=== PATIENT | female | born 1935 ===

== ENCOUNTER 2017-07-21 09:48 | Inpatient (IN) | payer SELFPAY ==
[~2017-07-21 09:48] MED LIST: Iopamidol 370 76% 100 ML VIAL ONE; Iopamidol 370 76% 50 ML VIAL FS ONE
[2017-07-21] MEDS ORDERED: Fentanyl 100 MCG/2 ML VIAL ONE ×2 (09:59→11:11)
[2017-07-21 10:07] LABS: #Eosinphils 0.3 thou/uL (0.0-0.7); #Lymphocytes 4.1 thou/uL (1.20-3.40); %Basophils 0.3 % (0.0-1.0); %Eosinophils 2.9 % (0.0-10.0); %Lymphocytes 39.6 % (21.0-51.0); %Monocytes 9.5 % (0.0-10.0); %Neutrophils 47.6 % (42.0-75.0); Hemoglobin 12.6 g/dL (12.0-16.0); Mean Corpuscular Hemoglobin 32.5 pg (27.0-31.0); Mean Corpuscular Volume 95.7 fl (81.0-99.0); Mean Platelet Volume 8.3 fL (7.4-10.4); Platelet Count 194 thou/uL (130-400); RBC Distribution Width 12.1 % (11.5-14.5); Red Blood Cell (RBC) Count 3.88 mill/uL (4.20-5.40); White Blood Cell (WBC) Count 10.4 thou/uL (4.8-10.8)
--- NOTE | 2017-07-21 10:23 | RAD ---
CHEST ONE VIEW: HISTORY: Chest pain. COMPARISON: None. FINDINGS: Mild interstitial edema. No focal air space consolidation. There is mild perihilar fullness bilater ally. Defibrillator pad projects over the right hemithorax. IMPRESSION: Mildly increased interstitial markings, suggesting edema. POS: [facility]
[2017-07-21] MEDS ORDERED: Midazolam HCl 2 mg/2 ml Vial ONE ×3 (10:31→11:47)
[2017-07-21 10:35] LABS: ALT (SGPT) 12 U/L (8-55); AST (SGOT) 16 U/L (5-34); Albumin 3.3 g/dL (3.4-4.8); Alkaline Phosphatase 62 U/L (40-150); Anion Gap 13 mmol/L (10-20); BUN (Urea Nitrogen) 10 mg/dL (9.8-20.1); Bilirubin, Total 0.4 mg/dL (0.2-1.2); CK (CPK) 79 U/L (29-168); Calc. Creatinine Clearance 0 mL/min (70-130); Calcium 8.2 mg/dL (7.8-10.44); Carbon Dioxide 20 mmol/L (23-31); Chloride 111 mmol/L (98-107); Estimated GFR-MDRD 73; Globulin 2.3 g/dL (2.4-3.5); Glucose 120 mg/dL (83-110); Lipase 133 U/L (8-78); Potassium 3.5 mmol/L (3.5-5.1); Protein, Total 5.6 g/dL (6.0-8.3); Sodium 140 mmol/L (136-145)
[2017-07-21 10:39] LABS: CKMB 1.6 ng/mL (0-6.6); Troponin I Less than 0.010 ng/mL (< 0.028)
[2017-07-21] MEDS ORDERED: Heparin 10,000 UNITS/1 ML VIAL ONE (10:47)
[2017-07-21] MEDS ORDERED: Nitroglycerin 100MG/250ML BOT 250 ML ONE (10:52)
[2017-07-21] MEDS ORDERED: Verapamil 5 MG/2 ML VIAL ONE (11:01)
[2017-07-21] MEDS ORDERED: DOPamine 400 MG/D5W 250 ML 250 ML ONE (11:01)
[2017-07-21] MEDS ORDERED: Adenosine 6 MG/2 ML VIAL ONE (11:01)
[2017-07-21] MEDS ORDERED: Norepinephrine 4 MG/4 ML VIAL ONE ×3 (11:16→11:47)
[2017-07-21] MEDS ORDERED: Aggrastat 12.5 MG/250 ML 250 ML ONE (11:30)
[2017-07-21] MEDS ORDERED: Ondansetron HCl/PF 4 MG/2 ML Vial ONE (11:33)
[2017-07-21] MEDS ORDERED: TICAGRELOR 90 MG TABLET ONE (12:06)
[2017-07-21] MEDS ORDERED: Milk Of Magnesia 30 ML UDCUP PO PRN (12:12)
[2017-07-21] MEDS ORDERED: Aggrastat 12.5 MG/250 ML 250 ML IVPB SCH (12:15)
[2017-07-21] MEDS ORDERED: Sodium Chloride 0.9% 1,000 ML IV SCH (12:15)
[2017-07-21] MEDS ORDERED: TICAGRELOR 90 MG TABLET PO SCH ×3 (12:18→21:00)
[2017-07-21] MEDS ORDERED: Aggrastat 12.5 MG/250 ML 12.5 MG in Premix Bag 1 BAG IVPB SCH (12:18)
[2017-07-21] MEDS ORDERED: Morphine 4 MG/ML Carpuject SLOW IVP PRN (12:18)
[2017-07-21] MEDS ORDERED: DOPamine 400 MG/D5W 250 ML 250 ML IVPB PRN (12:21)
--- NOTE | 2017-07-21 12:44 | HP ---
DATE OF ADMISSION: 07/21/2017 INDICATION FOR PROCEDURE: An 81-year-old female with acute anterior myocardial infarction. HISTORY OF PRESENT ILLNESS: This very unfortunate lady started developing chest pain, shoulder pain and neck pain this morning. She called 911. She was complaining of nausea and diaphoresis. She has had a history of myocardial infarction in the past, angioplasty and stent placement, uncertain as to where this was placed and when, but apparently a couple of years ago in an outside facility. When they arrived, her heart rate was in the 60s, blood pressure was also 60-80 systolic. She was seen in the emergency room, still continued to have some chest pain with ST segment elevation anteriorly and reciprocal changes inferiorly. PAST MEDICAL HISTORY: That we know of is for coronary artery disease as noted above. She has a history of tobacco abuse. She continues to smoke. She says she is not taking any medicine. ALLERGIES: She has no allergies. MEDICATIONS: She was given Zofran, aspirin, 500 mL of normal saline and heparin 5000 units. SOCIAL HISTORY: She lives in an assisted living or alf. She continues to smoke. She has a grandson who is here in town. FAMILY HISTORY: Noncontributory. REVIEW OF SYSTEMS: She has false teeth and she has some nausea. Otherwise, a 12-point review of systems is unremarkable except what was noted in the history of present illness. PHYSICAL EXAMINATION: GENERAL: Reveals an elderly female, somewhat slightly confused. VITAL SIGNS: Blood pressure 95/62, heart rate is in the 70s. She is afebrile. HEENT: Shows the head to be normocephalic and atraumatic. Carotid pulses are present. I did not hear any significant bruits. CHEST: Clear to auscultation. There were no rales, rhonchi or wheezing. CARDIOVASCULAR: Reveals a regular rate and rhythm at this time with a normal S1 , S2. I cannot hear any significant murmurs, heaves, thrills, bruits or rubs. ABDOMEN: Shows obesity with positive bowel sounds. EXTREMITIES: Show no clubbing, cyanosis or edema. Pedal pulses are not present. Popliteal pulses are very difficult to palpate. Femoral pulses are also decreased. NEUROLOGIC: She appears to be somewhat confused, otherwise is intact. There are no gross focal motor deficits noted. IMAGING: EKG shows a sinus rhythm with acute anterior myocardial infarction with ST segment elevation anteriorly and inferiorly with reciprocal changes. LABORATORY DATA: Shows a hemoglobin of 12.6 with a hematocrit of 37.1, WBC of 7.1. Renal function apparently is within normal limits. No elevation of the cardiac enzymes at this time. She continues to have pain and EKG changes, she will be advised to undergo emergent cardiac catheterization for evaluation of her coronary artery status. I have explained the procedure and the risks to her to include bleeding, infection, possibility of myocardial infarction, CVA, renal insufficiency, allergic contrast reaction and the possibility of . She understands and agrees to proceed. We will plan for the procedure on an emergent basis. KIARA
[2017-07-21] MEDS ORDERED: Prevnar 13-Val Conj/PF 0.5 ML SYRINGE IM ONE (13:15)
[2017-07-21 13:28] VITALS: BMI 27.3
[2017-07-21] MEDS: Sodium Chloride 0.9% 1,000 ML IV SCH ×2 (13:28→15:36)
[2017-07-21 14:25] LABS: Lactic Acid 2.7 mmol/L (0.5-2.2)
[2017-07-21] MEDS ORDERED: ALPRAZolam 0.25 MG TAB PO PRN (15:46)
--- NOTE | 2017-07-21 16:59 | EKG ---
Test Reason : POST STENTS Blood Pressure : / mmHG Vent. Rate : 082 BPM Atrial Rate : 082 BPM P-R Int : 156 ms QRS Dur : 078 ms QT Int : 394 ms P-R-T Axes : 051 082 048 degrees QTc Int : 460 ms Normal sinus rhythm Low voltage QRS Anteroseptal infarct , possibly acute * ACUTE MT * Abnormal ECG No previous ECGs available Confirmed by ULISES KENNEY ([id number]) on 07/21/2017 4:59:08 PM Referred By: DANGELO Confirmed By:ULISES KENNEY
[2017-07-21] MEDS ORDERED: Ondansetron ODT 8 MG TAB SL PRN ×2 (17:15→20:18)
[2017-07-21 19:31] LABS: Troponin I 128.669 ng/mL (< 0.028)
--- NOTE | 2017-07-21 20:52 | CON ---
DATE OF CONSULTATION: 07/21/2017 SERVICE: Pulmonary Medicine. REASON FOR CONSULTATION: ICU patient. HISTORY OF PRESENT ILLNESS: The patient is an 81-year-old white female with past medical history significant for coronary artery disease. She was in her usual state of health when she had an abrupt onset of not feeling quite right. She has a hard time describing this. Then, she started having nausea and vomiting that came on fairly abruptly. This was similar to her prior heart attack. As such, she got out of her car and got back into the nursing facility where she promptly asked for someone to call 911. She was brought here and discovered to have an ST-elevation NM. She was emergently taken down for cardiac catheterization. A culprit lesion was identified and subsequently stented. Her nausea and vomiting have resolved at this point. She denies any current fevers, chills, nausea, or vomiting. There is no precipitating event. PAST MEDICAL HISTORY: 1. Coronary artery disease. 2. Tobacco abuse, ongoing. 3. Hypertension. SOCIAL HISTORY: She smokes 3 cigarettes on a daily basis, but has a greater than [id number] history of smoking. She has no exposure to significant alcohol or illicit drug use. She has no exposure to chemicals, dust, asbestos, or tuberculosis. FAMILY HISTORY: Noncontributory. ALLERGIES: No known drug allergies. MEDICATIONS: List of her inpatient medications were reviewed. No modifications were made at this time. REVIEW OF SYSTEMS: General, head, eyes, nose, throat, cardiovascular, respiratory, GI, , musculoskeletal, neurologic, and skin is negative except as mentioned in the HPI. PHYSICAL EXAMINATION: VITAL SIGNS: Afebrile, pulse 91, blood pressure 107/54, respirations 22, saturation 92% on 4 liters nasal cannula. GENERAL: The patient is awake, alert, in no apparent distress. LUNGS: Decent air entry. Dependent crackles are minimal. There is no prolonged expiratory phase or wheezing appreciated. HEART: Normal rate, regular. ABDOMEN: Soft, nontender, nondistended. Bowel sounds are positive. MUSCULOSKELETAL: No cyanosis or clubbing. There is no pitting in the bilateral lower extremities. NEUROLOGIC: Grossly nonfocal. LABORATORY DATA: WBC 10.4, hemoglobin 12.6, platelets 194,000. ACT 138. Basic metabolic profile and liver function studies are unremarkable. Cardiac enzymes are negative x1. BNP is 86. Lactate was 3.5, but has improved down to 2.7. IMAGING: X-ray of the chest demonstrates no acute cardiopulmonary abnormality. Mildly increased interstitial markings are evident. Minimal cephalization. Widened carinal angle is suggestive of left atrial enlargement. ASSESSMENT: 1. ST-elevation myocardial infarction, status post percutaneous coronary intervention. 2. Coronary artery disease. 3. History of medical noncompliance. 4. Tobacco abuse. DISCUSSION AND PLAN: The patient is doing fantastic at this point in the immediate postop period. Her blood pressures are okay and her heart rate is fine. She will be monitored in the ICU for the next 24 hours and if she does well, she will be transitioned to the floor tomorrow morning. We will continue monitoring her on telemetry. Pulmonary Critical Care will continue to follow for the time being. 70 minutes have been devoted to this patient in various activities. I personally reviewed all imaging studies and laboratory data noted within this document. For fifty percent of this time, I was interacting with the patient at the bedside or coordinating care with the care team. For the remainder of the time I was immediately available to the patient in the hospital unit. KIARA
[2017-07-21] MEDS ORDERED: Promethazine HCl 25 MG/ML VIAL IM/IV PRN (21:21)
[2017-07-21] MEDS ORDERED: Naloxone HCl 0.4 mg/ml Vial ONE ×2 (22:03→22:04)
--- NOTE | 2017-07-21 22:11 | PDOC.EVN ---
Event Note - Event Note Event Note: Patient seen and examined in ICU at 1635 on 07/21/17. Case discussed with Dr. Herbert and his H&P reviewed and repeated by me. Agree with A/P as documented. 81 y/o WF with PMH CAD s/p stent, uncontrolled htn, tobacco abuse who presented with n/v and chest pressure. In ER found to have STEMI and taken to labor and employment paralegal. She had stent placed to LAD. We are consulted for medical management of her chronic diseases. Review of her clinic records show that she was last seen in May 2017 and had new prescription of beta milena, aspirin and statin medication. When discussing compliance she states she never filled any of those and has not been taking any medication. At the time of my exam she was complaining of mild chest discomfort. VSS and O2 sat 92-94%. Heart: normal S1/s2, rate 80s, no murmurs, gallops or rubs Lungs: occ exp wheeze. Mild crackles at bases. Good air mvmt. No respiratory distress. Labs reviewed. 1) NSTEMI- recs per cards. Will need beta milena, ADRIANA I, aspirin and statin on discharge. Probably start tomorrow 2) HTN- bp initially low and now stable. Monitor and restart meds once bp allows. 3) Tobacco abuse- counseling
[2017-07-21] MEDS ORDERED: CCU Electrolyte Replacement 1 EACH IVPB ONE (22:35)
--- NOTE | 2017-07-21 22:36 | RAD ---
PORTABLE CHEST: 07/21/17 HISTORY: Respiratory failure. Hypoxia. COMPARISON: Film taken earlier today at 9:50 a.m. FINDINGS/IMPRESSION: There are now bilateral confluent infiltrates which have developed since the film earlier today. Vasc ular congestion. Findings most likely represent diffuse pulmonary edema given the rapid onset since eva schaeffer today. ET tube is in place and tip is above kusum. POS: [facility]
[2017-07-21] MEDS ORDERED: DISCONTINUE PREVIOUS NARCOTIC PAIN MEDICATIONS AND BENZODIAZEPINES FS SCH (22:40)
[2017-07-21] MEDS ORDERED: fentaNYL Citrate/PF 2,000 MCG in Sodium Chloride 0.9% 60 ML IV SCH (22:40)
[2017-07-21] MEDS ORDERED: Propofol 1,000 MG/100 ML VIAL IV PRN (22:40)
[2017-07-21] MEDS ORDERED: Morphine 4 MG/ML VIAL SLOW IVP PRN (22:40)
[2017-07-21] MEDS ORDERED: Fentanyl BOLUS 250 ML IVPB PRN (22:40)
[2017-07-21] MEDS ORDERED: Propofol BOLUS 1,000 MG/100 ML VIAL IV PRN (22:40)
[2017-07-21] MEDS ORDERED: Lorazepam 2 MG/ML VIAL SLOW IVP PRN (22:40)
[2017-07-21] MEDS ORDERED: Potassium Phosphate 15 MMOL in Sodium Chloride 0.9% 250 ML 250 ML IV PRN (22:44)
[2017-07-21] MEDS ORDERED: Potassium Phosphate 9 MMOL in Sodium Chloride 0.9% 100 ML IVPB PRN (22:44)
[2017-07-21] MEDS ORDERED: Potassium Chloride 20 MEQ TAB PO PRN (22:44)
[2017-07-21] MEDS ORDERED: CCU ELECTROLYTE REPLACEMENT PROTOCOL FS PRN (22:44)
[2017-07-21] MEDS ORDERED: Potassium Phosphate 12 MMOL in Sodium Chloride 0.9% 250 ML 250 ML IV PRN (22:44)
[2017-07-21] MEDS ORDERED: Magnesium 2 GM/NS 0.9% 100 ML 2 GM in Premix Bag 1 BAG IVPB PRN (22:44)
[2017-07-21] MEDS ORDERED: Potassium Chloride 40 MEQ in Sodium Chloride 0.9% 250 ML 250 ML IVPB PRN (22:44)
[2017-07-21] MEDS ORDERED: Potassium Chloride 40 MEQ in Premix Bag 1 BAG IVPB PRN (22:44)
[2017-07-21] MEDS ORDERED: Magnesium Oxide 400 MG TAB PO PRN ×2 (22:44)
[2017-07-21] MEDS ORDERED: Furosemide 40 MG/4 ML VIAL SLOW IVP SCH (22:45)
[2017-07-21] MEDS ORDERED: Ventilator Sedation Protocol 1 EACH FS SCH (22:45)
[2017-07-21 22:49] LABS: Actual Bicarbonate (HCO3a) 18.4 mEq/L (22-28); Base Excess (BEa) -7.4 mEq/L (-2.0 to +3.0); CO2 Tension 38.4 mmHg (35.0-45.0); Hematocrit-ABG 41.5 % (36.0-47.0); Hemoglobin (Hb) 13.5 g/dL (12.0-16.0)
[2017-07-21 22:50] LABS: Calcium, Ionized 1.1 mmol/L (1.12-1.30); Puncture Site LRA
--- NOTE | 2017-07-21 22:51 | PDOC.EVN ---
Event Note - Event Note Event Note: Paged at 0 to eval patient for increased difficultly breathing and decreasing O2 sats On arrival to the room patient was breathing agonally, non-responsive, and being bagged by RT Visited the patient's room at 1999 to discuss nausea, at that time she was A&O x3, spoke in complete sentences and reported no SOB VS: 85% on Bag mask, pulse 120s, BP 180/130 Resp: agonal breathing, crackles bilaterally Ordered EKG, CXR, ABG, paged Cardiology who is primary team, and called Dr. Barrera from ED to evaluate patient Checked blood glucose which was in the 130s, gave narcan Agonal breathing persisted and decision was made to intubate, see procedure note CXR shows likely pulmonary Edema Labs: BNP, CBC, CMP, Troponin Turned down fluids to TKO Cardiology ordered 40mg IV Lasix Sedation protocol and soft restraints ordered
--- NOTE | 2017-07-21 22:57 | PDOC.OP ---
Operative Note - Operative Note Operative Note: INDICATION: Acute Respiratory Failue PROCEDURE WILDLIFE CONTROL AGENT: Dr. Kali Leahy ATTENDING PHYSICIAN: Dr. Cynthia Barrera In Attendance Y CONSENT: deferred 03/13 emergency procedure PROCEDURE SUMMARY: I wore mask with protective eyewear, gown and gloves throughout the procedure. The patient was placed on a nuclear monitoring technician including continuous pulse oximetry. Rapid Sequence Intubation was conducted. The patient received Etomidate for induction and 100mg of Rocuronium for adequate paralysis. Cricoid pressure was maintained from time induction agent was given to time of cuff balloon inflation. Using a T3 glidescope and a size 7.5 endotracheal tube with stylet, the patient was intubated on the 2nd attempt. The stylet was removed and cuff balloon was inflated. Appropriate endotracheal tube position was confirmed by direct visualization of vocal cord passage, fogging of the tube, CO2 colometric indicator and symmetric breath sounds. The tube was secured at the lips. Post intubation chest x-ray is pending at this time. <Kali Leahy - Last Filed: 07/21/17 22:53> Attending Addendum - Attending Addendum Date/Time: 08/05/17 1550 I agree with the description of procedure documented above with any addition or exceptions noted below. The procedure was supervised by ER physician as described above. <Luke Esteban - Last Filed: 08/05/17 15:52>
[2017-07-21 22:59] LABS: Band 18 % (5-11); Hemoglobin 13.8 g/dL (12.0-16.0); Lymphocytes 9 % (21-51); MDiff Complete? YES; Mean Corpuscular HGB CONC 34.6 g/dL (32.0-36.0); Mean Corpuscular Hemoglobin 33.3 pg (27.0-31.0); Mean Corpuscular Volume 96.1 fl (81.0-99.0); Mean Platelet Volume 8.1 fL (7.4-10.4); Neutrophil 73 % (42-75); Platelet Count 196 thou/uL (130-400); RBC Distribution Width 12.3 % (11.5-14.5); Red Blood Cell (RBC) Count 4.14 mill/uL (4.20-5.40)
[2017-07-21 23:04] LABS: ALT (SGPT) 76 U/L (8-55); AST (SGOT) 439 U/L (5-34); Albumin 3.6 g/dL (3.4-4.8); Alkaline Phosphatase 75 U/L (40-150); Anion Gap 17 mmol/L (10-20); BUN (Urea Nitrogen) 8 mg/dL (9.8-20.1); Bilirubin, Total 0.7 mg/dL (0.2-1.2); Calc. Creatinine Clearance 58 mL/min (70-130); Carbon Dioxide 17 mmol/L (23-31); Chloride 112 mmol/L (98-107); Estimated GFR-MDRD 69; Globulin 2.6 g/dL (2.4-3.5); Glucose 158 mg/dL (83-110); Potassium 4.1 mmol/L (3.5-5.1); Protein, Total 6.2 g/dL (6.0-8.3); Sodium 142 mmol/L (136-145)
[2017-07-21] MEDS ORDERED: Amiodarone HCl 150 MG, Admixture Fee 1 EACH in Dextrose 5% in Water 100 ML IVPB SCH (23:30)
[2017-07-21] MEDS ORDERED: Amiodarone HCl 450 MG, Admixture Fee 1 EACH in Dextrose 5% in Water 250 ML IVPB SCH (23:40)
[2017-07-21] MEDS ORDERED: Norepinephrine 8 MG/0.9% NS 250 ML ONE (23:41)
[2017-07-21 23:47] LABS: CKMB 535.7 ng/mL (0-6.6); Troponin I 217.881 ng/mL (< 0.028)
--- NOTE | 2017-07-22 00:45 | PDOC.OP ---
Operative Note - Operative Note Operative Note: INDICATION: Needs pressors PROCEDURE DINKEY MECHANIC: Dr. Kali Leahy ATTENDING PHYSICIAN: Dr. Dg Cooney In Attendance Y CONSENT: The procedure was performed emergently and the permission was implied because of the emergent nature. PROCEDURE SUMMARY: A time out was performed. My hands were washed immediately prior to the procedure. I wore a surgical cap, mask with protective eyewear, full gown and sterile gloves throughout the procedure. The patient was placed in Trendelenburg position. RIGHT Neck region was prepped using chlorhexidine scrub and draped in sterile fashion using a three quarter sheet drape and sterile towels. The medial and lateral heads of the sternocleidomastoid muscle were identified as was the carotid pulse. The Internal Jugular vein was identified using the ultrasound. Using real-time out of plane guidance, the introducer needle was inserted into the Internal Jugular vein under direct ultrasound visualization. Venous blood was withdrawn. The syringe was removed and a guidewire was advanced into the introducer needle. The guidewire was visualized in the Internal Jugular Vein by ultrasound. A small incision was made at the skin surface with a scalpel and the introducer needle was exchanged for a dilator over the guidewire. After appropriate dilation was obtained, the dilator was exchanged over the wire for a 3 lumen central venous catheter. The wire was removed and the catheter was sutured in place at 18 cm, hubbed. A sterile shield was placed over the catheter at the insertion site. The patient tolerated the procedure without any hemodynamic compromise. At time of procedure completion, all ports aspirated and flushed properly. Post-procedure chest x-ray is pending at this time. Estimated blood loss is 5ml.
--- NOTE | 2017-07-22 00:47 | HP-2 ---
CODE STATUS: FULL. PRIMARY CARE PHYSICIAN: Placido Larkin MD ATTENDING PHYSICIAN: Kristin Viramontes MD RESIDENT PHYSICIAN: Jan Herbert MD HISTORIAN: Patient SPECIALIST: Aleena Cano MD, Cardiology. CHIEF COMPLAINT: Chest pain. HISTORY OF PRESENT ILLNESS: This is an 81-year-old female with a known history of coronary artery disease, status post stent placement in approximately 2013, who presents to the ER with chest pain. The patient developed left-sided chest pain that radiated to the shoulder and the neck this morning. She also endorses nausea, vomiting, and diaphoresis at that time. She is a resident at the [facility]. After one episode of emesis the staff called EMS, and she was transported to [place] ED for further workup. Upon arrival, the patient was extremely hypotensive with systolic blood pressures measured between 60 and [address]-segment elevation anteriorly and reciprocal changes inferiorly. Initial troponin measured less than 0.01 with CK-MB of 1.6. The patient was given Zofran, aspirin, 500 mL bolus of normal saline, 5000 units of heparin, and 25 mcg of fentanyl in the ED. Cardiology was called from the ER and the patient was emergently taken to the yard labor supervisor. The patient has undergone successful catheterization with left anterior descending artery bare metal stent placement and thrombectomy. She is now recovering in the critical care unit on an Aggrastat drip. Her pressures are between 90 to 100 mmHg systolic. She is no longer experiencing chest pain and is resting comfortably. PAST MEDICAL HISTORY: 1. Coronary artery disease, status post stent in approximately 2013. 2. Hyperlipidemia. 3. Hypertension. 4. Chronic low back pain. 5. Tobacco abuse. PAST SURGICAL HISTORY: 1. section x2. 2. Catheterization with stent placement x2. ALLERGIES: No known drug allergies. MEDICATIONS: 1. Metoprolol succinate 25mg PO daily 2. Atorvastatin 20 mg PO daily. 3. Aspirin 81 mg PO daily. 4. Meloxicam 7.5mg PO daily PRN FAMILY HISTORY: Father with hypertension and son with Parkinson disease. SOCIAL HISTORY: The patient has a 1/2 pack per day for the last 50 years smoking history. She endorses occasional alcohol use as once per month and no drug use. She is an occupant of [facility]. REVIEW OF SYSTEMS: General: Denies fever, chills. Denies night sweats. Denies fatigue. Eyes: Denies vision change. Denies eye pain. ENT: Denies any nasal congestion. Denies rhinorrhea. Respirations: Denies cough. Denies chest congestion. Denies shortness of breath. Cardiovascular: Denies chest pain at this time. Denies palpitations. Denies edema. Gastrointestinal: Denies nausea. Denies vomiting. Denies diarrhea. Genitourinary: Denies incontinence. Denies dysuria. Skin: Denies rashes. Denies lesions. Musculoskeletal: Endorses back pain. Denies tenderness. Denies stiffness. Neurologic: Denies weakness. Denies numbness. Psychiatric: Denies anxiety. Denies depression. PHYSICAL EXAMINATION: VITAL SIGNS: Blood pressure 100/54, pulse of 85 beats per minute, respiratory rate 20 breaths per minute, temperature max 99.0 Fahrenheit, pulse oximetry of 94% on 2 liters nasal cannula. Current weight is 68 kilograms. GENERAL: Alert and oriented x3, in no acute distress. Obese. ENT: Nasal mucosa within normal limits and oropharynx within normal limits. NECK: Supple. No lymphadenopathy, no bruits. CARDIOVASCULAR: Regular rate and rhythm. No murmurs. RESPIRATORY: Normal effort. No retractions. Clear to auscultate bilaterally. ABDOMEN: Soft, nontender to palpation. No mass or distention. EXTREMITIES: No clubbing or cyanosis. NEUROLOGIC: No focal deficits. Cranial nerves II-XII intact. SKIN: Warm and dry. No cyanosis. PSYCHIATRIC: Appropriate. LABORATORY DATA: White blood cell count of 10.4, hemoglobin of 12.6, hematocrit of 37.1, platelet count of 194, activated clotting time of 138. Sodium 140, potassium 3.5, chloride 111, carbon dioxide 20, BUN of 10, creatinine of 0.76, estimated GFR is 73, glucose 120, lactic acid of 2.7, calcium of 8.2, total bilirubin of 0.4, AST of 16, ALT of 12, alkaline phosphatase 62, CK of 29, CK-MB of 1.6. Troponin of 0.01. BNP of 86. Serum total protein 5.6, albumin of 3.3, lipase of 133. ABG with a pH of 7.35, pCO2 of 35.7, and a pO2 of 100.3. EKG shows anterior ID. Chest x-ray shows possible interstitial edema. ASSESSMENT AND PLAN: 1. Acute myocardial infarction, status post bare metal stent. Continue Cardiology recommendations with Aggrastat at this time. She will transition to aspirin and Plavix in the outpatient setting. Continue oxygen, morphine p.r.n. as needed. Continue to monitor vital signs and provide symptomatic relief. Monitor vital signs per ICU protocol 2. Lactic acidosis. We will continue normal saline at 100 and recheck in the morning. We expect this to continue to trend down. 3. Hyperlipidemia. Restart her atorvastatin in the morning. Recent fasting lipid panel was checked, so no need to recheck during this hospitalization. 4. Hypertension. The patient has not been filling her medications of metoprolol and atorvastatin. She is still hypotensive upon admission, so we will hold any antihypertensive medications. 5. Chronic low back pain. The patient has been taking meloxicam in the outpatient setting. We will hold for now. Monitor her symptoms while she is hospitalized. DISPOSITION AND LENGTH OF HOSPITAL STAY: 2+ days. Symptomatic medications will be provided. History and physical exam as well as management discussed with Dr. Kristin Viramontes. KIARA
[2017-07-22] MEDS ORDERED: Norepinephrine 8 MG/250 ML BAG IVPB PRN (01:19)
--- NOTE | 2017-07-22 01:33 | PDOC.EVN ---
Event Note - Event Note Event Note: Code Blue Note At 2355 patient's HR went down to 60s, BP to 120s systolic MD entered patient's room, patient still intubated and unresponsive HR decreased and pulses were lost, PEA was noted on monitor Patient was pulseless and as such compressions were started Patient received epi every 2 min, for 3 rounds 1 amp of bicarb, 1 dose of calcium, 1 of atropine 1 L Lactated Ringers was given while patient was pulseless Pulses were then identified once again Rhythm was SVT Patient received 200J syncronized shock Continued in SVT, Talked to Dr. Cano who recommend 150mg of Amiodarone push Patient was in sinus tachycardia, pulse in the 120s-140s, BP high 87/59 Dr. Cooney arrived and recommended 3 amps bicarb based on most recent ABG Proceeded to put in Central line and start levophed Spoke to family, they would like to do everything for now, daughter is EDDIE, she should be coming tomorrow from [place]. Patient expressed that she would not like to "be on life-support forever" to the [facility] in the past. <Kali Leahy - Last Filed: 07/22/17 01:03> Attending Addendum - Attending Addendum Date/Time: 08/05/17 3902 I personally evaluated the patient and discussed the management with Dr. Leahy. I agree with the History, Examination, Assessment and Plan documented above with any addition or exceptions noted below. <Luke Esteban - Last Filed: 08/05/17 15:53>
[2017-07-22 01:42] LABS: Actual Bicarbonate (HCO3a) 13.2 mEq/L (22-28); Base Excess (BEa) -12.8 mEq/L (-2.0 to +3.0); Hematocrit-ABG 35.7 % (36.0-47.0); Hemoglobin (Hb) 11.8 g/dL (12.0-16.0); O2 Tension (PaO2) 88.1 mmHg (> 60.0); pH, Arterial 7.25 (7.35-7.45)
[2017-07-22 01:43] LABS: Analyzer IN Cardio OR; Calcium, Ionized 1.2 mmol/L (1.12-1.30); Puncture Site LBR
[2017-07-22 02:36] VITALS: BP 87/65
[2017-07-22 04:59] VITALS: TEMP 100
[2017-07-22] MEDS ORDERED: Sodium Chloride 0.9% 500 ML IVPB SCH (05:00)
--- NOTE | 2017-07-22 05:00 | PRG ---
DATE OF SERVICE: 07/22/2017 SERVICE: Pulmonary Medicine. INTERVAL HISTORY: The patient did poorly. She was doing just fine until she abruptly decompensated. She developed tachyarrhythmia and increasing oxygen requirements. Ultimately, she had an event and went completely obtunded. She was back for period of time. An endotracheal tube was established. Later on, things were stable once again, but then she fell off once again. She dropped her blood pressures and developed a tachyarrhythmia. Ultimately, chest compressions were initiated. She had about 8 minutes of chest compressions in total. Following this, she has spontaneous return of circulation. A right IJ was placed and pressors were initiated. The patient remains in critical condition. She has been a significant amount of time at bedside and attempt to stabilize the patient. PHYSICAL EXAMINATION: VITAL SIGNS: Afebrile, pulse 112, blood pressure 89/59, respirations 27, saturation 94% on 85% FiO2 and a PEEP of 5. GENERAL: The patient is intubated and sedated. HEENT: Normocephalic, atraumatic. Sclerae are white. Conjunctivae pink. Oral mucosa is moist without lesions. LUNGS: Decent air entry. There are no crackles are present throughout bilateral lung ibrahim without wheezing or rhonchi. HEART: Tachycardic. Regular. ABDOMEN: Soft, nontender, nondistended. Bowel sounds are positive. MUSCULOSKELETAL: No cyanosis or clubbing. There is no pitting in the bilateral lower extremities. NEUROLOGIC: Pupils are equal, round, and reactive. She withdraws from noxious stimuli in all 4 extremities. : No Suarez. LABORATORY DATA: WBC 21.0, hemoglobin 13.8, platelets 196,000. PH of 7.025, pO2 of 88, pCO2 of 31. Troponin is up trending to 217, AST 439, ALT 76 and up trending. Creatinine 0.80, bicarbonate 17, anion gap 17. IMAGING: Chest x-ray demonstrates interval development of bilateral pleural parenchymal abnormalities consistent with that massive pulmonary edema. There is a widened kusum angle compared to prior. Right IJ central venous catheter got terminates in the right atrium. ASSESSMENT: 1. Acute hypoxic respiratory failure. 2. Flash pulmonary edema. 3. Cardiogenic shock. 4. ST elevation myocardial infarction, status post percutaneous coronary intervention. 5. Coronary artery disease. 6. Medical noncompliance. 7. Tobacco abuse, ongoing. DISCUSSION AND PLAN: The patient is in critical condition. Cardiology is aware of her situation and circumstances. At this point, best supportive care will be continued. If she stabilizes through the night, additional investigation may be warranted. We will start to wean oxygen requirements if the patient can tolerate them. Critical care time: 110 minutes. MTDD
[2017-07-22 05:20] LABS: ALT (SGPT) 122 U/L (8-55); AST (SGOT) 461 U/L (5-34); Albumin 2.8 g/dL (3.4-4.8); Alkaline Phosphatase 66 U/L (40-150); Anion Gap 24 mmol/L (10-20); BUN (Urea Nitrogen) 12 mg/dL (9.8-20.1); Calc. Creatinine Clearance 32 mL/min (70-130); Calcium 8.3 mg/dL (7.8-10.44); Carbon Dioxide 16 mmol/L (23-31); Chloride 111 mmol/L (98-107); Estimated GFR-MDRD 34; Glucose 269 mg/dL (83-110); Protein, Total 4.8 g/dL (6.0-8.3); Sodium 147 mmol/L (136-145)
[2017-07-22 05:37] LABS: Band 9 % (5-11); Hemoglobin 11.9 g/dL (12.0-16.0); Lymphocytes 15 % (21-51); MDiff Complete? YES; Mean Corpuscular HGB CONC 32.6 g/dL (32.0-36.0); Mean Corpuscular Hemoglobin 32.4 pg (27.0-31.0); Mean Corpuscular Volume 99.3 fl (81.0-99.0); Mean Platelet Volume 8.5 fL (7.4-10.4); Neutrophil 76 % (42-75); Platelet Count 210 thou/uL (130-400); RBC Distribution Width 12.6 % (11.5-14.5); Red Blood Cell (RBC) Count 3.67 mill/uL (4.20-5.40); White Blood Cell (WBC) Count 22.4 thou/uL (4.8-10.8)
--- NOTE | 2017-07-22 09:42 | RAD ---
CHEST 1 VIEW: HISTORY: Line placement. COMPARISON: Chest radiograph of prior day. FINDINGS: Right IJ central venous catheter tip is at the right atrium. The patient has an endotracheal tube ti p above the kusum approximately 2.3 cm. There are worsening interstitial and alveolar opacities. Bi lateral layering effusions. No pneumothorax. IMPRESSION: Uncomplicated placement of right internal jugular central venous catheter. POS: [facility]
--- NOTE | 2017-07-22 12:29 | EKG ---
Test Reason : STAT Blood Pressure : / mmHG Vent. Rate : 154 BPM Atrial Rate : 154 BPM P-R Int : 100 ms QRS Dur : 118 ms QT Int : 314 ms P-R-T Axes : 053 109 048 degrees QTc Int : 502 ms Sinus tachycardia with short MI but per review /Suspect Atrial Flutter with 2:1 block Incomplete right bundle branch block Right ventricular hypertrophy with repolarization abnormality Cannot rule out Anteroseptal infarct (cited on or before 21-JUL-2017) T wave abnormality, consider inferior ischemia Abnormal ECG When compared with ECG of 21-JUL-2017 22:01, (Unconfirmed) Incomplete right bundle branch block is now Present Confirmed by ULISES KENNEY ([id number]) on 07/22/2017 12:29:08 PM Referred By: DANGELO Confirmed By:ULISES KENNEY
--- NOTE | 2017-07-22 12:30 | EKG ---
Test Reason : STAT Blood Pressure : / mmHG Vent. Rate : 120 BPM Atrial Rate : 120 BPM P-R Int : 136 ms QRS Dur : 070 ms QT Int : 342 ms P-R-T Axes : 057 046 067 degrees QTc Int : 483 ms Sinus tachycardia Low voltage QRS Cannot rule out Anteroseptal infarct (cited on or before 21-JUL-2017) Abnormal ECG When compared with ECG of 21-JUL-2017 12:38, Serial changes of evolving Anteroseptal infarct Present Confirmed by ULISES KENNEY ([id number]) on 07/22/2017 12:30:13 PM Referred By: ARJUN Confirmed By:ULISES KENNEY
[2017-07-22] MEDS ORDERED: Calcium Chloride 1 GM/10 ML Abboject SYRINGE ONE (14:19)
[2017-07-22] MEDS ORDERED: Sodium Bicarb 50 MEQ/50 ML Abboject 8.4% SYRINGE ONE (14:19)
[2017-07-22] MEDS ORDERED: Lidocaine 2% Jelly 5 ML TUBE ONE (14:19)
[2017-07-22] MEDS ORDERED: Atropine Sulfate 1 mg/10 ml Syringe ONE (14:19)
[2017-07-22] MEDS ORDERED: EPINEPHrine 1 MG/10 ML Abboject SYRINGE ONE ×2 (14:19)
--- NOTE | 2017-07-28 15:26 | DS-2 ---
DATE OF ADMISSION: 07/21/2017 DATE OF : 07/22/2017 TIME OF : 07:29. ATTENDING PHYSICIAN: Dr. Luke Esteban. RESIDENT: Dr. Kali Leahy. CAUSE OF : 1. Myocardial infarction. 2. Acute respiratory failure secondary to flash pulmonary edema. SECONDARY DIAGNOSES: Hyperlipidemia, hypertension, low back pain, presbycusis. HOSPITAL COURSE: The patient had a bare metal stent yesterday, was difficult catheterization per [facility] diology. At 2019 last night, the patient went into acute secondary to stress, secondary to flash pul monary edema, likely resulting from coronary artery disease. The patient was intubated. About one h our later, her pulse decreased into the 60s and the patient ultimately went into PEA. Patient receiv ed compressions, epinephrine, bicarbonate, calcium and amiodarone. The patient received synchronized shock of 200 joules. The patient's pulses returned. Then, about 5 hours later, the patient went in to PEA once again. Compressions and epinephrine were administered for 10 minutes. The patient's ronni jesse who is [facility], says she was satisfied with the work that had been done and requested that the cod e be started. Compressions were stopped and the patient at 0523.
== END 2017-07-22 05:55 | disposition expired | DRG 248 ==
LOC: EDBD 09:48 → ERS 09:48 → CCL 10:51 → CCU 11:49
PROVIDERS: ADMIT Internal Medicine Cardiovascular Disease; ATTEND Internal Medicine Cardiovascular Disease
PROC: 02703DZ Dilation of Coronary Artery, One Artery with Intraluminal Device, Percutaneous Approach (ICD-10-PCS; principal; 2017-07-21)
PROC: 02C03ZZ Extirpation of Matter from Coronary Artery, One Artery, Percutaneous Approach (ICD-10-PCS; 2017-07-21)
PROC: B2111ZZ Fluoroscopy of Multiple Coronary Arteries using Low Osmolar Contrast (ICD-10-PCS; 2017-07-21)
PROC: 4A023N7 Measurement of Cardiac Sampling and Pressure, Left Heart, Percutaneous Approach (ICD-10-PCS; 2017-07-21)
PROC: 0BH17EZ Insertion of Endotracheal Airway into Trachea, Via Natural or Artificial Opening (ICD-10-PCS; 2017-07-21)
PROC: 5A1935Z Respiratory Ventilation, Less than 24 Consecutive Hours (ICD-10-PCS; 2017-07-21)
PROC: 02H633Z Insertion of Infusion Device into Right Atrium, Percutaneous Approach (ICD-10-PCS; 2017-07-22)
PROC: 5A2204Z Restoration of Cardiac Rhythm, Single (ICD-10-PCS; 2017-07-22)
PROC: 5A12012 Performance of Cardiac Output, Single, Manual (ICD-10-PCS; 2017-07-22)
DX: I21.09 ST elevation (STEMI) myocardial infarction involving other coronary artery of anterior wall (principal); J96.01 Acute respiratory failure with hypoxia; J81.0 Acute pulmonary edema; E87.2 Acidosis; I47.1 Supraventricular tachycardia; R57.0 Cardiogenic shock; E78.5 Hyperlipidemia, unspecified; I10 Essential (primary) hypertension; G89.29 Other chronic pain; M54.5 Low back pain; I25.10 Atherosclerotic heart disease of native coronary artery without angina pectoris; F17.210 Nicotine dependence, cigarettes, uncomplicated; H91.10 Presbycusis, unspecified ear; I25.2 Old myocardial infarction; Z95.5 Presence of coronary angioplasty implant and graft; Z79.82 Long term (current) use of aspirin; Z79.899 Other long term (current) drug therapy; Z91.14 Patient's other noncompliance with medication regimen
CPT/HCPCS: 36415; 36416; 71045; 80053; 82553; 82805; 83605; 83690; 83880; 84484; 85025; 85347; 92941; 92973; 92977; 93005; 93010; 93458; 94002; 94003; 96374; 99152; 99153; A4216; C1725; C1757; C1769; C1876; C1887; J0153; J0171; J0282; J0461; J1265; J1644; J1940; J2250; J2270; J2310; J2405; J2550; J2704; J3010; J3246; J7070